=== PATIENT | female | born 1950 | race Caucasian/White ===

== ENCOUNTER 2016-06-23 21:18 | Inpatient (IN) | payer MEDICARE, OTHER ==
[~2016-06-23] VITALS: Ht 162.6 cm; Wt 91.3 kg
[~2016-06-23 21:18] MED LIST: ASPIRIN E.C. 8181 MG PO; GLUCOPHAGE1000 MG PO; LIPITOR 10MG10 MG PO; MICROZIDE12.5 MG PO; NEXIUM 40MG40 MG PO; NITROQUICK0.4 MG SL; PRENATAL VITAMI1 TAB PO; SYNTHROID0.05 MG/TA PO; TOPROL XL 50MG50 MG PO; VENTOLIN0.09 MG IH; ZESTRIL40 MG PO; ZOLOFT 50MG50 MG PO
[2016-06-23] MEDS ORDERED: SYNTHROID0.05 MG/TA PO (21:48)
[2016-06-23] MEDS ORDERED: ZOLOFT 50MG50 MG PO (21:49)
[2016-06-23] MEDS ORDERED: LOPRESSOR 225 MG/TAB PO (21:49)
[2016-06-23] MEDS ORDERED: GLUCOPHAGE1000 MG PO (21:49)
[2016-06-23] MEDS ORDERED: NEXIUM 40MG40 MG PO (21:49)
[2016-06-23] MEDS ORDERED: ASPIRIN 81M81 MG/TA2 PO (21:50)
[2016-06-23] MEDS ORDERED: LIPITOR 10MG10 MG PO (21:50)
[2016-06-23] MEDS ORDERED: NITROSTAT0.4 MG/TAB SL (21:52)
[2016-06-23] MEDS ORDERED: DULCOLAX STOOL100 MG PO (21:52)
[2016-06-23 21:58] VITALS: BP 140/74; PULSE 83
[2016-06-23 22:07] LABS: BASO # 0.1 (0.0-0.2); BASO % 0.8 % (0.0-2.0); EOS # 0.1 (0.0-0.7); EOS % 1.1 % (0-4.0); GRAN # 9.7 (1.4-6.5); GRAN % 81.3 % (42.2-75.2); HEMATOCRIT 39.9 % (37.0-47.0); HEMOGLOBIN 13.2 g/dl (12.5-16.0); LYMPH # 1.2 (1.2-3.4); LYMPH % 10.1 % (20.0-51.0); MEAN CELL VOLUME 88 fl (80.0-100.0); MEAN CORPUSCULAR HEMOGLOBIN 29 pg (27.0-31.0); MEAN CORPUSCULAR HGB CONC 33 g/dl (33.0-37.0); MEAN PLATELET VOLUME 10.1 fl (7.4-10.4); MONO # 0.7 (0.1-0.6); MONO % 6.1 % (1.7-9.3); PLATELET COUNT 318 K/mm3 (130-400); RED BLOOD COUNT 4.54 M/mm3 (4.10-5.30); WHITE BLOOD COUNT 11.9 K/mm3 (4.8-10.8)
[2016-06-23 22:18] LABS: ADJUSTED CALCIUM 9.1 mg/dL (8.4-10.2); ALANINE AMINOTRANSFERASE 31 U/L (9-52); ALBUMIN 4.3 gm/dL (3.5-5.0); ALKALINE PHOSPHATASE 62 U/L (50-136); ANION GAP 16 mmol/L (7-16); BILIRUBIN,TOTAL 0.8 mg/dL (0.0-1.0); BLOOD UREA NITROGEN 10 mg/dL (7-17); CALCIUM 9.3 mg/dL (8.4-10.2); CARBON DIOXIDE 25 mmol/L (22-30); CHLORIDE 98 mmol/L (98-107); CREATININE, serum 0.91 mg/dL (0.52-1.25); GLUCOSE 122 mg/dL (74-106); LIPASE 79 U/L (23-300); POTASSIUM 4.4 mmol/L (3.4-5.0); SODIUM 140 mmol/L (137-145); TOTAL PROTEIN 7.7 gm/dL (6.4-8.2)
[2016-06-23 22:30] LABS: B-TYPE NATRIURETIC PEPTIDE 2050 pg/mL (0-125)
[2016-06-23 22:33] LABS: PH 8 (5-8); URINE APPEARANCE Clear; URINE COLOR Yellow
[2016-06-23 22:34] LABS: URINE BILIRUBIN Negative (NEGATIVE); URINE BLOOD Negative (NEGATIVE); URINE GLUCOSE Negative (NEGATIVE); URINE KETONE Negative (NEGATIVE)
[2016-06-23 22:35] LABS: PROLACTIN 21.1 ng/mL (3.0-18.6); TROPONIN-I < 0.012 ng/mL (0.000-0.034)
[2016-06-23 22:38] LABS: SQUAMOUS EPITHELIAL 0-2 /hpf; URINE RBC None Seen /hpf; URINE WBC None Seen /hpf
[2016-06-24] VITALS (7 sets, daily range): BP systolic 104–141; BP diastolic 50–76; PULSE 63–80; TEMP 97.6–99.1
[2016-06-24 05:24] LABS: BASO # 0.1 (0.0-0.2); BASO % 0.6 % (0.0-2.0); EOS # 0.2 (0.0-0.7); EOS % 1.8 % (0-4.0); GRAN % 61.3 % (42.2-75.2); HEMOGLOBIN 10.6 g/dl (12.5-16.0); LYMPH # 2.2 (1.2-3.4); LYMPH % 27.1 % (20.0-51.0); MEAN CELL VOLUME 90 fl (80.0-100.0); MEAN CORPUSCULAR HEMOGLOBIN 29 pg (27.0-31.0); MEAN CORPUSCULAR HGB CONC 32 g/dl (33.0-37.0); MEAN PLATELET VOLUME 9.5 fl (7.4-10.4); MONO # 0.7 (0.1-0.6); MONO % 8.7 % (1.7-9.3); PLATELET COUNT 261 K/mm3 (130-400); RED BLOOD COUNT 3.65 M/mm3 (4.10-5.30); REDCELL DISTRIBUTION WIDTH-CV 13.1 % (11.5-14.5); WHITE BLOOD COUNT 8.1 K/mm3 (4.8-10.8)
[2016-06-24 05:25] LABS: HEMATOCRIT 32.9 % (37.0-47.0)
[2016-06-24 05:35] LABS: CALCIUM 7.9 mg/dL (8.4-10.2); CREATININE, serum 0.82 mg/dL (0.52-1.25); POTASSIUM 4.1 mmol/L (3.4-5.0)
[2016-06-25 03:09] VITALS: BP 141/61; PULSE 80; TEMP 98.5
[2016-06-25 07:24] VITALS: BP 134/62; PULSE 85; TEMP 98.8
[2016-06-25] MEDS ORDERED: ZITHROMAX 250M250 MG PO (10:07)
[2016-06-25 11:36] VITALS: BP 139/76; PULSE 62; TEMP 97.8
== END 2016-06-25 12:13 | disposition home or self-care (01) | DRG 195 ==
LOC: COL.ER 21:18 → MEDICAL 23:29
PROVIDERS: Emergency Medicine; Family Medicine
DX: J18.9 Pneumonia, unspecified organism (principal); E11.9 Type 2 diabetes mellitus without complications; I25.10 Atherosclerotic heart disease of native coronary artery without angina pectoris; I10 Essential (primary) hypertension; Z95.1 Presence of aortocoronary bypass graft; Z87.891 Personal history of nicotine dependence
CPT/HCPCS: 99223-AI; 99239; J0456; J0696; J1644; J7030; J7050